=== PATIENT | male | born 1950 | race Caucasian/White ===

== ENCOUNTER 2022-12-28 07:01 | Emergency (ER) | payer OTHER, MEDICARE, SELFPAY ==
--- NOTE | ~2022-12-28 | CT_ITS ---
EXAMINATION: CT forearm without contrast, left CLINICAL INFORMATION: Acute nontraumatic left forearm/wrist swelling. Patient reports clicking sound during workout. COMPARISON: None TECHNIQUE: Axial imaging. Sagittal and coronal reconstructions. Noncontrast CT. FINDINGS: No acute fracture is seen of the radius. There is a linear lucency in the olecranon process of the proximal ulna, from age-indeterminate trauma. Limited evaluation of the elbow joint. Mild elbow joint arthritis, with small bony spurring.Small ossifications anterior to the distal humerus, probable loose bodies. Possible small elbow joint fluid. 4 mm calcification/ossification adjacent to the olecranon process, could reflect dystrophic changes, or sequela of age-indeterminate trauma. Clinically correlate. Limited evaluation of the wrist joint. Mild radiocarpal arthritis. Apparent ulna negative variance. Degenerative cysts in the scaphoid. Small chronic appearing calcification volar to the capitate. No gross tear is identified within the muscles of the forearm. No focal fluid collection is seen. No significant interfascial fluid is seen. Mild subcutaneous edema in the distal forearm. Limited evaluation the tendons. The partially visualized tendons at the wrist grossly appear intact. CT/CT forearm LT wo IV con IMPRESSION: 1. Mild elbow joint arthritis. Probable loose bodies. 2. Linear lucency in the proximal ulnar olecranon process, suggestive of sequela of age-indeterminate trauma. 4 mm calcification/ossification adjacent to the olecranon process; differential consideration include sequela of age-indeterminate trauma, dystrophic changes. Clinically correlate.. 4. No acute radial fracture seen. 5. Mild radiocarpal arthritis. 6. No gross tear is identified of the forearm muscles. No fluid collection seen. If this clinical concern for soft tissue injury, MRI evaluation may be helpful.
--- NOTE | 2022-12-28 07:20 | ED_ITS ---
HPI - Extremity Injury (Upper) General Chief Complaint: General Medical Stated Complaint: l arm inj Time Seen by Provider: 12/28/22 07:19 Source: patient Mode of arrival: ambulatory Limitations: no limitations History of Present Illness HPI narrative: Apparently patient was at gym yesterday was reaching the hanging bar and heard a pop in his left wrist with swelling and pain since then swelling has increased and pain continues patient does have tingling sensation in the left 1st 3 fingers for a while. No fever no chills Related Data Previous Rx's Medication Instructions Recorded ibuprofen 600 mg tablet 600 mg PO Q6H PRN fever or pain 12/28/22 #30 tabs Allergies Allergy/AdvReac Type Severity Reaction Status Date / Time No Known Allergies Allergy Verified 12/28/22 09:28 [No Known Allergies*] Review of Systems Review of Systems: Yes all other systems are reviewed and are negative [facility] Social History Social History Alcohol intake: current Alcohol intake frequency: 0-2 drinks per day Alcohol type: beer Smoked in Last 30 Days: No Substance Use Type: Marijuana Substance Use Frequency: Occasionally Last Used Substance: Weeks (ago) Any prior treatment program specific to substance use: No Advance Directives: No Advance Directives Information Provided: Yes Physical Exam Vital Signs: Vital Signs: Last Vital Signs Temp 97.8 F 12/28/22 07:34 Pulse 61 12/28/22 07:34 Resp 18 12/28/22 07:34 Pulse Ox 98 12/28/22 07:34 O2 Del Method Room Air 12/28/22 07:34 BMI result Body Mass Index 0.3 Appearance: Alert. Oriented X3. No acute distress. CVS: Normal heart rate and rhythm. Pulses normal. Respiratory: No respiratory distress. Equal air entry bilateral, Abdomen: Soft and nontender. Bowel sounds are present, Skin: Skin warm and dry. Normal skin color. Normal skin turgor. Neuro: Oriented X 3. No motor deficit. Extrem: Elbow/forearm/wrist images: 1. Soft tissue swelling with erythema and tenderness good range of wrist movement paresthesia and left thumb and index finger Tinel sign positive Medical Decision Making Medical Decision Making MDM Narrative: Patient's CT scan negative for any fluid collection or fracture likely has carpal tunnel syndrome causing swelling and pain will put a splint ibuprofen advised to follow up with Ortho Discharge Plan Discharge Clinical Impression: Carpal tunnel syndrome of left wrist Patient Disposition: Home, Self-Care Instructions: Wrist Injury (ED) Additional Instructions: Likely you have carpal tunnel of left wrist Wear the splint for support and follow with PCP/ortho Ibuprofen for pain Prescriptions: New ibuprofen 600 mg tablet 600 mg PO Q6H PRN (Reason: fever or pain) Qty: 30 0RF Referrals: Troy Adams MD [Physician] - 1 week
[2022-12-28 07:34] VITALS: PULSE 61; RESP 18; TEMP 36.6; O2SAT 98
== END 2022-12-28 09:56 | disposition home or self-care (01) ==
PROVIDERS: Emergency Provider Internal Medicine
DX: G56.02 Carpal tunnel syndrome, left upper limb (principal)
CPT/HCPCS: 73200; 99283; 99284